=== PATIENT | male | born 1955 | race Caucasian/White ===

== ENCOUNTER → 2023-10-05 14:08 | Outpatient (REF) | payer BC, SELFPAY | LOC: CLAB 14:08 | PROVIDERS: ATTENDING PHYSICIAN Surgery | DX: N40.1 Benign prostatic hyperplasia with lower urinary tract symptoms (principal); R97.20 Elevated prostate specific antigen [PSA] | CPT/HCPCS: 88305; 88344 ==

== ENCOUNTER 2023-10-13 10:27 | Emergency (ER) | payer BC, SELFPAY ==
[2023-10-13 10:41] VITALS: BP 165/93
[2023-10-13 11:12] VITALS: BP 168/93
--- NOTE | 2023-10-13 11:24 | ED.GENMED ---
History of Present Illness
General
Chief Complaint: Swelling
Source: patient
Exam Limitations: none
Time Seen by Provider: 10/13/23 11:10
Travel History
Have you had any contact with someone who has COVID-19?: No
Do you have any symptoms of coronavirus? Fever > 100 degrees, chills, cough, shortness of breath, sore throat, loss of taste or smell, muscle aches, or headache?: No
History of Present Illness
History of Present Illness:
68-year-old male who presents for evaluation of his left leg wound. The patient states that he fell and scraped it 1 week ago. He went to urgent care yesterday because he noticed some redness. He was advised to come the emergency department. The
patient states he did not want to come yesterday and came today. He did have some doxycycline at home and took a dose but did not have enough. He denies fevers. He states the redness seems actually better today. Does smoke but states he is in
the process of quitting and has been using Nicorette gum to help. When the patient first injured his leg, he did not get evaluated. He states he just wrapped it
Past History
Past History
ED Past Medical History: HTN, Hypercholesterolemia and Psychiatric
ED Past Surgical History: Other (Tonsillectomy, sinus surgery, rectal abscess repair, prostate biopsy)
Social History
Tobacco: Smoker
Phy Exam
Physical Exam
Physical Exam:
CONSTITUTIONAL Vital signs reviewed, Patient alert and oriented to person, place and time. Well-appearing
HEAD atraumatic, normocephalic.
EYES eyelids normal to inspection, Extraocular muscles intact, Conjunctiva normal, Sclera normal.
NECK normal range of motion, Trachea midline, no jugular venous distention.
RESP no respiratory distress
BACK No obvious deformities
UPPER EXTREMITY Gross Range of motion normal, gross motor strength normal
LOWER EXTREMITY Gross range of motion normal, Gross motor strength normal. To the lateral aspect of the left lower leg there is a reverse 'J-shaped' apparent skin tear from his injury. The base of the visible open area is blackened. There is some
surrounding redness most notably at the distal edge. There is no proximal redness and no proximal streaking. There is no drainage.
NEURO Speech normal, No focal motor deficits include, [place] coma scale 15, Memory normal, Cranial Nerves intact to screening exam.
SKIN Skin warm, dry, and normal in color.
PSYCHIATRIC Patient oriented to person place and time, Normal affect.
Scores
Heart Failure Risk
Heart Failure Risk Score: Not Applicable
Course
Orders/Labs/Results
Orders:
Orders
10/13/23 11:24
Doxycycline [Vibramycin] 100 mg PO NOW STA
Vital Signs
Initial and Last Documented VS:
Initial Vital Signs
Temp Pulse Resp BP Pulse Ox
98.9 F 98 18 165/93 95
10/13/23 10:41 10/13/23 10:41 10/13/23 10:41 10/13/23 10:41 10/13/23 10:41
Last Documented Vital Signs
Temp Pulse Resp BP Pulse Ox
98.9 F 99 14 168/93 95
10/13/23 10:41 10/13/23 11:15 10/13/23 11:15 10/13/23 11:12 10/13/23 11:15
MDM/Problems Addressed
MDM/Problems Addressed:
Infected skin wound, skin tear
*Pulse Oximetry
Patient hypoxic: no
*Critical Care Note
Total Time (30-74mins, 75-104mins- exclusive of procedures): Not Applicable
Data Reviewed
Source: patient
Further Testing Considered But Not Given:
Consider labs and blood cultures but afebrile and localized skin redness and patient reports redness is improving after Doxy
Patient Management
Escalation/DeEscalation of care consider admission/obs:
Patient does not want a full workup and just wants to get antibiotics to manage it. Reports improving symptoms after just taking a dose or 2 of doxycycline. I think this is reasonable. I will advise outpatient wound care and PCP follow-up
Update Note
Update Note:
Patient was also counseled on importance of smoking cessation
ED Attending Note
-
Portions of this chart may have been created with voice recognition software.� Occasional wrong word or��sound alike� substitutions may have occurred due to the inherent limitations of voice recognition software.
Discharge Plan
Departure
Patient Disposition: Home (Routine Discharge)
Date of Disposition: 10/13/23
Time of Disposition: 11:30
Patient with high blood pressure during this ER visit?: Yes
Discharge Problem:
Infected wound
Instructions: Cellulitis (Skin Infection), Adult (DC)
Prescriptions:
New
doxycycline monohydrate 100 mg tablet
100 mg PO BID Qty: 20 0RF
No Action
sertraline 100 MG tablet
100 mg PO DAILY
lisinopril [Prinivil] 40 MG tablet
40 mg PO
fluticasone propionate [Flonase] 16 GM spray,suspension
16 gm NS DAILY
Patient Comments:
2 squirts/day
Evelia
Activity Restrictions/Additional Instructions:
Return immediately for any increase in redness, drainage from the wound, fever, pain or any other concerns. Please see your doctor in the next 3 days for follow-up and reevaluation and recheck of your wound. In addition, please follow-up with
wound care
Interventions
Interventions:
*General Assessment Last Done: 10/13/23 10:41
ED- Fall Risk Assessment Last Done: 10/13/23 12:01
*ED COVID-19 Vaccine History Last Done: 10/13/23 10:41
*Nursing Disposition Last Done: 10/13/23 12:01
ED- Cardiac Assessment Last Done: 10/13/23 11:59
ED- Pulmonary Assessment Last Done: 10/13/23 11:59
ED-Skin Assessment Last Done: 10/13/23 11:59
Discharge Date and Time
Discharge Date/Time: 10/13/23 12:02
[2023-10-13] MEDS: VIBRAMYCIN 100 MG PO (11:28)
== END 2023-10-13 12:02 | disposition home or self-care (01) ==
LOC: EMR 10:27
PROVIDERS: EMERGENCY PHYSICIAN Emergency Medicine; FAMILY PHYSICIAN Family Medicine
DX: S81.802A Unspecified open wound, left lower leg, initial encounter (principal); W19.XXXA Unspecified fall, initial encounter; F17.200 Nicotine dependence, unspecified, uncomplicated; I10 Essential (primary) hypertension
CPT/HCPCS: 99283

== ENCOUNTER 2023-10-15 19:09 | Observation (INO) | payer BC, SELFPAY ==
[2023-10-15 16:46] VITALS: BP 149/87
--- NOTE | 2023-10-15 17:31 | ED.SKININJ ---
HPI-Injury
General
Chief Complaint: Skin Problem
Source: patient
Exam Limitations: none
Time Seen by Provider: 10/15/23 17:19
Nursing documentation reviewed up to this point in time: agreed with
Travel History
Have you had any contact with someone who has COVID-19?: No
Do you have any symptoms of coronavirus? Fever > 100 degrees, chills, cough, shortness of breath, sore throat, loss of taste or smell, muscle aches, or headache?: No
History of Present Illness-Injury
Is this injury a work related problem?: No
Is pt an associate of [facility]?: No
Initial Injury comments:
Patient to ED with compaint of increasing pain, redness, swelling to E. He was seen in ED 2 days ago requesting antibiotics for wound. He fell 1.5weeks ago and cut leg on wood. He was treating on own until 10/12 when he went to for evaluation
of mild erythema at site. They advised him to come to ED for eval but he didnt want to come to ED at that time. He eventually came to ED on 10/13. He declined work-up. States he ad 1 doxycycline pill at home and took the previous night. He felt
the wound was improving after 1 dose so he was coming to ED to request RX for full course. He was discharged on with doxycycline 100mg BID x 20 doses. States over the past 24 hours the redness has worsened. Today he reports increased
swelling and pain. Denies fever/chills. Brought self to ED. He is agreeable to work-up today, probable admission.
Past History
Past History
ED Past Medical History: HTN, Hypercholesterolemia and Psychiatric
ED Past Surgical History: Other (Tonsillectomy, sinus surgery, rectal abscess repair, prostate biopsy)
Social History
Tobacco: Smoker
Review of Systems
Review of Systems
Allergies reviewed?: Yes
All Other Systems: ROS reviewed and negative except as documented in HPI and ROS
Constitutional: Reports no symptoms
Musculoskeletal: Reports other (Pain redness and swelling to left lower leg.)
Skin: Reports other (large wound on left lateral feng. Surrouonding erythema. Black eschar covering wound. No discharge.)
Neurological: Reports no symptoms
Psychiatric: Reports no symptoms
Phy Exam
General Physical Exam
General Presentation: well appearing and mild distress
General age: appears stated age
General Skin: warm and dry
General Habitus: normal
General Mental: alert
General Hydration: appears well hydrated
Musculoskeletal Exam
Musculoskeletal Exam: full ROM and neuro vasc intact
Skin Exam
Skin Exam: warm/dry and other (Eerythema and swelling to left lowerl leg. Large wound to lateral aspect of lower leg. Black eschar over wound. No drainage.)
Psychiatric Exam
Psychiatric Exam: normal mood/affect
Course
Orders/Labs/Results
Orders:
Orders
10/15/23 Breakfast
Cholesterol Lowering
At Your Request: Full Participation
Cholesterol Lowering: Sodium, 2 Gram
10/15/23 17:29
US Periph Venous LOWER Ext LT Urgent
Comment:
Reason For Exam: swelling erythema
10/15/23 17:58
Complete Blood Count/With Diff Urgent
Comprehensive Metabolic Panel Urgent
10/15/23 18:05
Vancomycin 1 Gram/200 ml [Vancocin] 1 gram in 200 ml IV NOW
10/15/23 18:35
Admit/Transfer Patient As Directed
Co-Sign Provider:
Level of Care: Observation services
Assign to:: Medical/Surgical
Physician / Group: Raman
Diagnosis: cellulitis
10/15/23 18:45
Code Status As Directed
Resuscitation Status: Full Code
10/15/23 18:46
Acetaminophen [Tylenol] 650 mg PO Q4HPRN PRN
Activity As Directed
Activity Level: Out of Bed-Early Mobility
Intake/ Output As Directed
Frequency: Per unit guidelines
Vital Signs As Directed
Frequency: Per unit guidelines
10/15/23 19:00
0.9% Sodium Chloride 1000 ml [Nss] 1,000 ml IV 80 mls/hr
Flush (0.9% Sodium Chloride) [Flush (Nss)] See Dose Instructions IV PER PROTOCOL
10/15/23 20:10
Blood Culture Q15M
BUZZ Source: Blood/Venous
Specimen Description:
10/15/23 20:27
Blood Culture Q15M
BUZZ Source: Blood/Venous
Specimen Description:
10/15/23 20:45
Ciprofloxacin 400 mg/[id number] [Cipro 400 mg] 200 ml IV Q12H
Enoxaparin Sodium [Lovenox] 40 mg SC QPM
Ibuprofen [Motrin] 200 mg PO Q6H PRN
naphazo HCl-hpm-ps 80-Zn sulf [Clear Eyes Complete] 0 drop BOTH EYES QID PRN
10/15/23 20:45
WOUND/OSTOMY CONSULT Routine
Reason for Consult: left leg wound
Activity As Directed
Activity Level: Out of Bed-Early Mobility
Vital Signs As Directed
Frequency: Per unit guidelines
DX Deep Vein Thrombosis Video Routine
10/16/23 06:00
Complete Blood Count/With Diff IN AM
10/16/23 08:00
Lisinopril [Zestril] 40 mg PO DAILY
Sertraline HCl [Zoloft] 100 mg PO DAILY
Abnormal Lab Results
10/15/23
17:58
RBC 4.11 L 10^6/uL
(4.70-6.10)
MCV 95.4 H fL
(80.0-94.0)
MCH 31.9 H pg
(27.0-31.0)
Abs Immat Gran (auto) 0.1 H 10^3/uL
(0-0.05)
Absolute Neuts (auto) 7.1 H 10^3/uL
(1.4-6.5)
Absolute Monos (auto) 0.9 H 10^3/uL
(0.1-0.6)
Immature Gran % 0.6 H %
(0-0.5)
Sodium 132 L mmol/L
(135-145)
BUN 29 H mg/dl
(9-20)
Total Protein 6.2 L g/dl
(6.3-8.2)
10/15/23 17:58
10/15/23 17:58
Vital Signs
Initial and Last Documented VS:
Initial Vital Signs
Temp Pulse Resp BP Pulse Ox
98.2 F 51 16 149/87 96
10/15/23 16:46 10/15/23 16:46 10/15/23 16:46 10/15/23 16:46 10/15/23 16:46
Last Documented Vital Signs
Temp Pulse Resp BP Pulse Ox
97.8 F 80 22 157/83 95
10/15/23 20:53 10/15/23 20:53 10/15/23 20:53 10/15/23 20:53 10/15/23 20:53
*Radiology
Radiology exam reviewed: radiology read reviewed
*Pulse Oximetry
Patient hypoxic: no
*Critical Care Note
Total Time (30-74mins, 75-104mins- exclusive of procedures): Not Applicable
Update Note
Update Note:
Patient to ED with complaint of wrosening redness, swelling and pain to LLE. Seen in ED 2 days ago and placed on doxy 100mg bid without improvement. Will admit to hospitalist. IV antibiotics started in dept.
ED Attending Note
-
Portions of this chart may have been created with voice recognition software.� Occasional wrong word or��sound alike� substitutions may have occurred due to the inherent limitations of voice recognition software.
Discharge Plan
Departure
Patient Disposition: Admit
Date of Disposition: 10/15/23
Time of Disposition: 18:13
Presentation/result/management discussed w/ accepting MD/DO: Hospitalist
Condition: Fair
Covid-19: Not Applicable
Discharge Problem:
Cellulitis of left leg
Interventions
Interventions:
*Risk Screen - Suicide Last Done: 10/15/23 18:05
*General Assessment Last Done: 10/15/23 18:05
*Neglect/Abuse Screening Last Done: 10/15/23 18:05
ED- Fall Risk Assessment Last Done: 10/15/23 18:05
*ED COVID-19 Vaccine History Last Done: 10/15/23 16:46
*Nursing Disposition Last Done: 10/15/23 20:43
ED-Skin Assessment Last Done: 10/15/23 18:05
Discharge Date and Time
Discharge Date/Time: 10/15/23 20:43
[2023-10-15 18:05] VITALS: BMI 28.5
[2023-10-15 18:05] LABS: % Basophils 0.6 % (0-2); % Eosinophils 2.5 % (0-6); % Immature Granulocytes 0.6 % (0-0.5); % Lymphocytes 21.7 % (20.5-51.1); % Monocytes 8.3 % (1.7-9.3); % Neutrophils 66.3 % (42.2-75.2); Absolute Basophils 0.1 10^3/uL (0-0.2); Absolute Eosinophils 0.3 10^3/uL (0-0.7); Absolute Immature Granulocytes 0.1 10^3/uL (0-0.05); Absolute Lymphocytes 2.3 10^3/uL (1.2-3.4); Absolute Monocytes 0.9 10^3/uL (0.1-0.6); Absolute Neutrophils 7.1 10^3/uL (1.4-6.5); Hematocrit 39.2 % (39.0-52.0); Hemoglobin 13.1 g/dL (13.0-18.0); Mean Corp Hgb Conc. 33.4 g/dL (33.0-37.0); Mean Corpuscular Hgb 31.9 pg (27.0-31.0); Mean Corpuscular Volume 95.4 fL (80.0-94.0); Mean Platelet Volume 9.3 fL (7.4-10.4); Nucleated Red Blood Cells % 0 % (-); Platelet Count 206 10^3/uL (130-400); Red Blood Cell Count 4.11 10^6/uL (4.70-6.10); Red Cell Dist. Width 12.5 % (11.5-14.5); White Blood Cell Count 10.8 10^3/uL (4.8-10.8)
[2023-10-15] MEDS: VANCOCIN 200 IV ×2 (18:17→21:42)
[2023-10-15 18:29] LABS: ALT (SGPT) 21 U/L (0-50); AST (SGOT) 32 U/L (17-59); Albumin 3.6 g/dl (3.5-5.0); Alkaline Phosphatase 85 U/L (38-126); Blood Urea Nitrogen 29 mg/dl (9-20); Calcium 8.6 mg/dl (8.4-10.2); Carbon Dioxide 23 mmol/L (22-30); Chloride 106 mmol/L (98-107); Estimated Creatinine Clearance 97 ml/min; Glucose 99 mg/dl (70-99); Potassium 4.6 mmol/L (3.5-5.1); Sodium 132 mmol/L (135-145); Total Bilirubin 0.3 mg/dl (0.2-1.3); Total Protein 6.2 g/dl (6.3-8.2); eGFR > 60.00
--- NOTE | 2023-10-15 19:12 | HPS.HSE ---
Addendum entered and electronically signed by Barby Camargo MD 10/15/23 21:29:
According to the pharmacist on, spoke to the patient his reaction to penicillin more than 40 years ago but since then he had received some cephalosporin without any reaction.
Will start him on Ancef instead of Cipro that would be a better coverage in addition to vancomycin for his cellulitis, will closely monitor.
Original Note:
Family Physician
-
Family Physician: Yan Herrera
Chief Complaint
-
Erythematous swelling of the left leg
History of Present Illness
68-year-old male with history of hypertension, presented again to the hospital for the second time in the last few day as been having now swelling of the left feng. Story goes back to a week ago will look like he injured his left leg, and then went
to urgent care and came to the ER earlier before but look like right he was back in here where she was given doxycycline and has been taking it since then without much relief this morning admit there is still same as red but it is more swelling
today. Denies any fever or chill or any pain or discharge from the area, and look like an inverted J shaped opening, was covered with a black eschar. No active discharge, denies any headache or vision change or any nausea or vomiting.
In the ER given vancomycin.
He is awake, alert and oriented x 3 and all appropriate conversations
He developed anaphylactic reaction to penicillins.
Medical History
Past Medical History
Past Medical History: Reports Other
Additional Past Medical History:
Past medical history reviewed:
Hypertension
Psoriasis
Mood disorder.
Social history: Lives with the family, smokes few cigarettes daily currently uses Nicorette gum, and drinks 4 beers daily and denies any drugs.
Family history: Reviewed and noncontributory
Past Surgical History: Reports Other
Social History
Unable to obtain full social history at this time due to: Other
Employment: Other
Family History
Family History: Other
Allergies / Home Medications
Allergies reflects when Allergies were last updated in [facility].
Home Medications with original date entered in [facility]
Allergy/Medication List:
Allergies
Allergy/AdvReac Type Severity Reaction Status Date / Time
Cephalosporins Allergy Unknown Verified 10/15/23 16:48
oxycodone HCl [From Percocet] Allergy LIPS SWELL Verified 10/15/23 16:48
penicillin V Allergy 'near Verified 10/15/23 16:48
experience'
Seasonal allergies Allergy trouble Uncoded 10/15/23 16:48
breathing,sneezing
Home Medications
sertraline 100 mg tablet 100 mg PO DAILY 12/31/08
doxycycline monohydrate 100 mg tablet 100 mg PO BID #20 tabs 10/13/23
guselkumab 100 mg/mL subcutaneous auto-injector (Tremfya) 100 mg SC Q8W 10/15/23
ibuprofen 200 mg tablet (Advil) 200 mg PO Q6H PRN mild pain 10/15/23
lisinopril 40 mg tablet 40 mg PO DAILY 10/15/23
naphazo HCl 0.025 %-hyprome 0.2 %-ps 80 0.5 %-Zn sulf 0.25 % eye drops (Clear Eyes Complete) 1 drp BOTH EYES QID PRN dryness 10/15/23
Review of Systems
-
A 12 point ROS was completed and negative except as noted: Yes
Physical Exam
Vital Signs
Vital Signs
Temp Pulse Resp BP Pulse Ox
98.2 F 51 16 149/87 96
10/15/23 16:46 10/15/23 16:46 10/15/23 16:46 10/15/23 16:46 10/15/23 16:46
Physical exam:
General: Awake, alert and oriented x3, not in distress and holds appropriate conversation. Overall
HEENT: No active discharge, ecchymosis or bruising, moist lips, tongue and mucous membrane.
Eyes: No discharge or red conjunctiva, no nystagmus, pupils are reactive and equal
Neck:Supple, no JVD no bruit no goiter.
Respiratory: Normal AP contour and diameter, normal chest wall movement, normal respiratory effort, no respiratory distress,
Lungs: Good air entry bilaterally, no wheezing or rhonchi, no rales or crackles
Heart: S1, S2 regular, normal rate, no added sound.
Gastrointestinal: Positive bowel sounds, soft, nontender, no guarding or rigidity or organomegaly
Musculoskeletal: Open wound in the left feng medial laterally, was like J-shaped, was covered with a black eschar with no active discharge there is some redness around it., no chest wall abnormality or tenderness. All joints and extremities have
good range of motion, no muscle tenderness or any joint swelling or tenderness.
Extremities: No pitting edema, good peripheral pulses, good range of motion
Skin: Some chronic skin change, warm and dry, no ulceration, normal color.
Neurological: Awake, alert and oriented x3, no facial droop, speech clear and comprehensive, good muscle tone, normal sensory and motor function
Psychiatric: Normal mood, normal thought and judgment, normal affect,
Physical Exam
General: Other
Laboratory Results
-
10/15/23 17:58
10/15/23 17:58
Laboratory Results
Total Bilirubin 0.3 mg/dl (0.2-1.3) 10/15/23 17:58
AST 32 U/L (17-59) 10/15/23 17:58
ALT 21 U/L (0-50) 10/15/23 17:58
Alkaline Phosphatase 85 U/L (38-126) 10/15/23 17:58
Data Reviewed
-
Lab Data: Labs Reviewed by me and Discussed with Patient
Old Records: Reviewed
Impression/Plan
-
IMPRESSION:
68-year-old male presented again to the hospital for evaluation of the left leg wound and cellulitis, despite taking doxycycline last few days not getting better.
Left leg cellulitis, triggered by traumatic injury of the left leg
Traumatic injury of the left leg
Failed outpatient treatment as doxycycline
Hypertension
Psoriasis
Mood disorder
Smoking
Alcohol use
PLAN:
Will cover with vancomycin with a failed doxycycline in the development of an acute reaction to penicillin also is allergic to cephalosporins therefore will add Cipro floxacillin for gram-negative coverage
Lower extremity ultrasound pending to rule out DVT
EKG because of the IV Cipro
Get a wound team consult for evaluation will hold off surgery consult for now pending wound team evaluation.
Tylenol and ibuprofen as needed
Monitor vital sign
Recheck lab
Continue lisinopril and sertraline
All discussed with the patient in detail and expressed understanding
CODE STATUS full code
DVT prophylaxis Lovenox
--- NOTE | 2023-10-15 20:04 | PHA.VAN.IN ---
Assessment
- Assessment
Renal Function: Unknown baseline (since SCr 2008 - 0.8; same as today)
Maximum Temperature: 98.2
AUC Dosing Plan
- Dosing Variables
Dosing Weight (kg): 92.5
Dosing CrCl (ml/min): 97
Vd coefficient (L/kg): 0.7
- Empiric Dosing
Initial / Loading Dose: 1000 mg 10/15 18:17, 1000 mg pending administation (total = 21.6 mg/kg)
Maintenance Regimen: 1250 mg q12h
Estimated AUC (mcg*h/mL): 484
Estimated Peak (mcg*h/mL): 30.2
Estimated Trough (mcg/ml): 12.4
Estimated Half Life (H): 8.2
- Monitoring
No levels ordered at this time: consider in the next few days
MRSA Screen: Ordered per protocol
Pharmacokinetics Vancomycin I
- -
Patient Age: 68
Patient Sex: Male
Vancomycin Day #: 1
Indication: Skin And Soft Tissue
Requesting Provider: Dr Camargo
Pertinent Antimicrobial Allergies:
Cephalosporins Allergy (Verified 10/15/23 20:03) Unknown- tolerated cefotetan in 2008
penicillin V Allergy (Verified 10/15/23 20:03) 'near experience'
Height / Weight:
Height 5 ft 11 in
Actual Weight 92.5 kg
- Vital Signs / Lab Results
Temp Pulse Resp BP Pulse Ox
98.2 F 51 16 149/87 96
10/15/23 16:46 10/15/23 16:46 10/15/23 16:46 10/15/23 16:46 10/15/23 16:46
Lab Results - Hematology
10/15/23
17:58
WBC 10.8
Lab Results - Chemistry
10/15/23
17:58
BUN 29 H
Creatinine 0.8
Estimated Creat Clear 97
Albumin 3.6
[2023-10-15] MEDS: NSS 1000 IV (20:34)
[2023-10-15 20:53] VITALS: BP 157/83
[2023-10-15] MEDS: LOVENOX 40 MG SC (21:38)
--- NOTE | 2023-10-15 22:25 | PTCARENOTE ---
Received pt from ED via stretcher. Pt ambulated to bed with stand by assist. AAOx3, VSS, no complaints of pain at this time. Oriented to floor, call duron within reach.
[2023-10-15] MEDS: ANCEF 5 IV (22:42)
[2023-10-16 02:54] VITALS: BP 119/81
[2023-10-16] MEDS: ANCEF 5 IV ×2 (05:30→13:04)
[2023-10-16] MEDS: VANCOCIN 275 MG IV (05:38)
[2023-10-16 06:00] VITALS: BMI 26.6
[2023-10-16 07:30] VITALS: BP 140/82
[2023-10-16] MEDS: ZESTRIL 40 MG PO (08:02)
[2023-10-16] MEDS: ZOLOFT 100 MG PO (08:02)
[2023-10-16 08:11] LABS: % Basophils 0.5 % (0-2); % Eosinophils 2.8 % (0-6); % Immature Granulocytes 0.7 % (0-0.5); % Lymphocytes 21.2 % (20.5-51.1); % Monocytes 8.8 % (1.7-9.3); Absolute Eosinophils 0.2 10^3/uL (0-0.7); Absolute Immature Granulocytes 0.1 10^3/uL (0-0.05); Absolute Lymphocytes 1.9 10^3/uL (1.2-3.4); Absolute Monocytes 0.8 10^3/uL (0.1-0.6); Absolute Neutrophils 5.8 10^3/uL (1.4-6.5); Hematocrit 39.7 % (39.0-52.0); Hemoglobin 13.1 g/dL (13.0-18.0); Mean Corpuscular Hgb 31.9 pg (27.0-31.0); Mean Corpuscular Volume 96.6 fL (80.0-94.0); Mean Platelet Volume 9.8 fL (7.4-10.4); Nucleated Red Blood Cells % 0 % (-); Platelet Count 193 10^3/uL (130-400); Red Blood Cell Count 4.11 10^6/uL (4.70-6.10); Red Cell Dist. Width 12.5 % (11.5-14.5); White Blood Cell Count 8.7 10^3/uL (4.8-10.8)
--- NOTE | 2023-10-16 09:28 | PHA.VAN.FU ---
Vancomycin Assessment / Plan
- Assessment
Renal Function: No New Labs Today
WBC's are: WNL
In the past 24 hrs, patient has been: Afebrile
Concomitant Antimicrobials: cefazolin
- Dosing Plan
Continue: Vanc 1250mg Q12H
- Monitoring Plan
No level(s) ordered at this time: consider levels in next few days
- Follow Up
Pharmacy will continue to follow.
Vancomycin Follow UP
- -
Patient Age: 68
Patient Sex: Male
Vancomycin Day #: 2
Indication: Skin And Soft Tissue
Requesting Provider: Dr Camargo
Pertinent Antimicrobial Allergies:
Azithromycin - hives
penicillin V - 'near experience'; couldn't breath, 40 years ago, tolerated cefotetan
Height / Weight:
Height 5 ft 11 in
Actual Weight 86.5 kg
- Vital Signs / Lab Results
Temp Pulse Resp BP Pulse Ox
97.5 F 69 19 140/82 96
10/16/23 07:30 10/16/23 08:02 10/16/23 07:30 10/16/23 08:02 10/16/23 07:30
Lab Results - Hematology
10/15/23 10/16/23
17:58 07:15
WBC 10.8 8.7
Lab Results - Chemistry
10/15/23
17:58
BUN 29 H
Creatinine 0.8
Estimated Creat Clear 97
Albumin 3.6
--- NOTE | 2023-10-16 10:45 | WOUNDNOTE ---
MADYSON RN note: Patient admitted with cellulitis of L leg and wound.
See H&P for complete history.
PMH: HTN,smoker, recent laceration to L leg.
Wound Location and type/assessment: Patient admitted with: Dry open laceration to L lateral leg. Patient states he tripped over electrical cord and scraped leg against a wooden platform. + palpable pedal pulse, 1+ edema.
Appetite: Good, encouraged protein in diet.
Pressure redistribution devices in place:Accumax, patient is ad yeny.
Plan: L leg applied adaptic and silicone foam, will order Santyl to help clean up wound bed. Tubigrip for edema as tolerated. Called [facility] for supply. Discussed the above with nurse Erazo who will apply Santyl under current dressing and apply Tubigrip
forefoot to below knee. Encouraged patient to elevate leg when sitting. Teaching done with patient regarding wound care and compression. States family who lives nearby can assist with wound care as needed.
Will confirm orders with hospitalist and updated nurse.
Updated care plan and will follow as needed.
Note to case management of equipment requested for discharge: None.
Recommend follow up at wound care center upon discharge.
[2023-10-16] MEDS: SANTYL OINTMENT 1 APPLIC TOPICAL (10:58)
--- NOTE | 2023-10-16 14:23 | W.PN.HOSP.TC ---
Today's Communication/Plan
-
X ray of the leg
BMP
Assessment / Plan
Assessment / Plan
68-year-old male injured his leg at home on a wooden block about 13 days ago. He was seen at urgent care 4 days ago and was started on doxycycline. 2 days after taking it he did not feel better therefore he came to the hospital. He states that it
is remarkably better and states that he wants to go home today. He denies any fevers at home.
On examination awake alert oriented
Cardiovascular system S1-S2 appreciated
Chest clear to auscultation
Abdomen soft nontender
Left lower extremity mild edema, dry open laceration in the lateral leg no discharge noted
Patient states he had a tetanus vaccine done April 2023 at urgent care when he had a cat bite.confirmed by family member at bedside
#Cellulitis secondary to open wound on the left leg
Has Tubigrip's on with dressing
No wound cultures were obtained on admission
Blood cultures pending
Change antibiotics to p.o. check x-ray
# Depression-continue sertraline
# Hypertension-continue lisinopril
# Psoriasis on Tremfya
# Mild hyponatremia-repeat
# COPD
# Active smoker-cessation counseling
# DVT prophylaxis-Lovenox
# Full code
Discussed with family at bedside
D/W RN
Anticipated Discharge: Today
Subjective/Interval History
-
Date of Service: October 16, 2023
Objective Data
-
Labs:
Laboratory Results
10/16/23
07:15
WBC 8.7
Hgb 13.1
Hct 39.7
Plt Count 193
Vital Signs:
Vital Signs
Temp Pulse Resp BP Pulse Ox
97.5 F 69 19 140/82 96
10/16/23 07:30 10/16/23 08:02 10/16/23 07:30 10/16/23 08:02 10/16/23 07:30
[2023-10-16 15:01] LABS: Blood Urea Nitrogen 17 mg/dl (9-20); Calcium 8.5 mg/dl (8.4-10.2); Carbon Dioxide 22 mmol/L (22-30); Chloride 107 mmol/L (98-107); Estimated Creatinine Clearance 111 ml/min; Glucose 129 mg/dl (70-99); Potassium 4.6 mmol/L (3.5-5.1); Sodium 132 mmol/L (135-145); eGFR > 60.00
[2023-10-16 15:30] VITALS: BP 163/92
--- NOTE | 2023-10-16 16:12 | W.PN.UPDATE ---
Update Note
Progress Note Update
Sodium stable OP in 1 week
X ray noted- no OM
Discharge with PPO AB and OP F/U with WC
--- NOTE | 2023-10-16 16:14 | W.DS.TRANS ---
Addendum entered and electronically signed by Mir Sin MD 10/16/23 17:23:
Dictation- [id number]
Original Note:
DC Summary - [employer]
-
Discharge Instructions:
Discharge Diagnosis/Procedures Cellulitis, laceration of the left leg, high
blood pressure, psoriasis
Diet 2 Gram Sodium
Activity As tolerated
Driving Restrictions As prior to admission
Blood Work cbc,bmp 1 week
Other Services VN
Instructions:
Stand-Alone Forms:
Changes to Home Medications: Yes
Discharge Medications:
DC Medications w/original date entered in [employer]
sertraline 100 mg tablet 100 mg PO DAILY Mental Health 12/31/08
doxycycline monohydrate 100 mg tablet 100 mg PO BID Infection 10/15/23
guselkumab 100 mg/mL subcutaneous auto-injector (Tremfya) 100 mg SC Q8W psoriasis 10/15/23
ibuprofen 200 mg tablet (Advil) 200 mg PO Q6H PRN mild pain 10/15/23
lisinopril 40 mg tablet 40 mg PO DAILY Blood Pressure 10/15/23
naphazo HCl 0.025 %-hyprome 0.2 %-ps 80 0.5 %-Zn sulf 0.25 % eye drops (Clear Eyes Complete) 1 drp BOTH EYES QID PRN dryness 10/15/23
cephalexin 500 mg capsule 500 mg PO QID Skin issues #24 caps 10/16/23
collagenase clostridium histo. 250 unit/gram topical ointment (Santyl) 1 applic topical DAILY Skin issues #30 grams 10/16/23
nicotine (polacrilex) 2 mg gum 2 mg PO Q2HPRN PRN Smoking craving #0 ea 10/16/23
Home Medication Changes
new
cephalexin 500 mg capsule 500 mg PO QID Skin issues #24 caps 10/16/23
collagenase clostridium histo. 250 unit/gram topical ointment (Santyl) 1 applic topical DAILY Skin issues #30 grams 10/16/23
nicotine (polacrilex) 2 mg gum 2 mg PO Q2HPRN PRN Smoking craving #0 ea 10/16/23
Pending Results: Yes
Additional Pending Results:
blood cultures pending,
--- NOTE | 2023-10-16 18:33 | PTCARENOTE ---
Reviewed discharge instructions with patient. Patient verbalizes understanding of all instructions. Removed peripheral IV. Patient left via wheelchair with patient transport. Denies questions or complaints at this time.
== END 2023-10-16 16:47 | disposition home or self-care (01) ==
LOC: 4 EAST ACU 19:09
PROVIDERS: Nurse Practitioner; ADMITTING PHYSICIAN Internal Medicine; ATTENDING PHYSICIAN Hospitalist; EMERGENCY PHYSICIAN Emergency Medicine; FAMILY PHYSICIAN Family Medicine
DX: L03.116 Cellulitis of left lower limb (principal); S81.812D Laceration without foreign body, left lower leg, subsequent encounter; X58.XXXD Exposure to other specified factors, subsequent encounter; I10 Essential (primary) hypertension; E78.00 Pure hypercholesterolemia, unspecified; J44.9 Chronic obstructive pulmonary disease, unspecified; E87.1 Hypo-osmolality and hyponatremia; F17.200 Nicotine dependence, unspecified, uncomplicated; L53.8 Other specified erythematous conditions; Z88.1 Allergy status to other antibiotic agents; Z88.5 Allergy status to narcotic agent; Z88.0 Allergy status to penicillin; F32.A Depression, unspecified
CPT/HCPCS: 73590; 80048; 80053; 85025; 87040; 87070; 93005; 93971; 96365; 99285; 99406; G0378

== ENCOUNTER → 2023-11-09 11:54 | Outpatient (REF) | payer BC, SELFPAY | LOC: PET 11:54 | PROVIDERS: ATTENDING PHYSICIAN Surgery | DX: C61 Malignant neoplasm of prostate (principal) | CPT/HCPCS: 78815; A9595 ==

== ENCOUNTER 2024-01-16 06:11 | Inpatient (IN) | payer BC, SELFPAY ==
[2024-01-10 08:52] VITALS: BMI 27.3
[2024-01-10 10:20] LABS: Hematocrit 45.6 % (39.0-52.0); Hemoglobin 15.2 g/dL (13.0-18.0); Mean Corp Hgb Conc. 33.3 g/dL (33.0-37.0); Mean Corpuscular Hgb 31.7 pg (27.0-31.0); Mean Platelet Volume 10.1 fL (7.4-10.4); Platelet Count 207 10^3/uL (130-400); Red Cell Dist. Width 14.2 % (11.5-14.5); White Blood Cell Count 6.8 10^3/uL (4.8-10.8)
[2024-01-10 10:31] LABS: APTT 30.8 Sec (23.4-35.0); INR 0.91; PT 12.3 Sec (11.4-14.6)
[2024-01-10 10:39] LABS: Urine Albumin Trace (Neg - Trace); Urine Bilirubin Negative (Negative); Urine Character Clear (Clear); Urine Color Yellow; Urine Glucose Negative (Negative); Urine Ketone Negative (Negative); Urine Leukocyte Negative (Negative); Urine Nitrite Negative (Negative); Urine Occult Blood 3+ (Negative); Urine Urobilinogen Negative (Neg - 1+)
[2024-01-10 10:51] LABS: Blood Urea Nitrogen 8 mg/dl (9-20); Calcium 9.1 mg/dl (8.4-10.2); Carbon Dioxide 28 mmol/L (22-30); Chloride 103 mmol/L (98-107); Estimated Creatinine Clearance 104 ml/min; Glucose 106 mg/dl (70-99); Sodium 139 mmol/L (135-145); eGFR > 60.00
[2024-01-10 11:39] LABS: Urine Mucus Many
[2024-01-10 11:41] LABS: Urine Amorphous Seen; Urine Squamous Cell 0-2 /LPF (Few)
[2024-01-10 11:42] LABS: Urine Granular Cast 0-2 /LPF (0)
[2024-01-10 11:43] LABS: Urine White Cell 0-2 /HPF (0-5)
[2024-01-16] VITALS (12 sets, daily range): BP systolic 117–187; BP diastolic 63–99; BMI 27.3; BMI 26.2
[2024-01-16] MEDS: NORMOSOL-R 1000 IV ×3 (06:35→22:14)
[2024-01-16] MEDS: NEOMYCIN ENEMA 1 BOTTLE RECTAL (06:40)
[2024-01-16] MEDS: VENTOLIN NEBULES 2.5 MG INH (08:11)
--- NOTE | 2024-01-16 10:40 | W.IMMPOSTOP ---
Surgical Immed Post Op Note
-
Primary Surgeon: Som
Assisting Surgeon: Debbie
Pre-op Diagnosis: Prostate cancer
Post-op Diagnosis: Same
Procedure Performed: Radical perineal prostatectomy, bladder neck reconstruction, bilateral seminal vesiculectomy
Anesthesia Type: GET
Specimen / Cultures: Prostate with en bloc adnexa, bladder neck and urethral margins
Estimated Blood Loss: 200 ml
Complications: None
[2024-01-16 11:08] LABS: Hematocrit 39.5 % (39.0-52.0)
[2024-01-16 11:19] LABS: Blood Urea Nitrogen 19 mg/dl (9-20); Calcium 7.9 mg/dl (8.4-10.2); Carbon Dioxide 22 mmol/L (22-30); Chloride 107 mmol/L (98-107); Estimated Creatinine Clearance 91 ml/min; Glucose 150 mg/dl (70-99); eGFR > 60.00
[2024-01-16 11:36] LABS: Sodium 135 mmol/L (135-145)
--- NOTE | 2024-01-16 11:55 | SUR.PHASEI ---
Dr. Kearns updated on urine output. Will continue to monitor
[2024-01-16] MEDS: COLACE PO (12:59)
--- NOTE | 2024-01-16 13:10 | PTCARENOTE ---
pt admitted to room 2119 from PACU at 1215. pt drowsy, easily arousable. assessment as documented. pt oriented to room, call duron, bed controls and plan of care with verbalized understanding. pt tolerating sips of water at this time. will
observe.
[2024-01-16] MEDS: COLACE 100 MG PO (17:10)
[2024-01-16] MEDS: TORADOL 15 MG IV ×2 (17:10→22:11)
[2024-01-16] MEDS: POLYSPORIN/DOUBLE ANTIBIOTIC 1 APPLIC TOPICAL (20:50)
[2024-01-17 03:16] VITALS: BP 158/89
[2024-01-17] MEDS: TORADOL 15 MG IV ×4 (04:07→21:34)
[2024-01-17 07:52] LABS: Hematocrit 33.7 % (39.0-52.0); Hemoglobin 11.1 g/dL (13.0-18.0); Mean Corp Hgb Conc. 32.9 g/dL (33.0-37.0); Mean Corpuscular Hgb 31.9 pg (27.0-31.0); Mean Corpuscular Volume 96.8 fL (80.0-94.0); Mean Platelet Volume 9.9 fL (7.4-10.4); Platelet Count 174 10^3/uL (130-400); Red Blood Cell Count 3.48 10^6/uL (4.70-6.10); Red Cell Dist. Width 13.6 % (11.5-14.5); White Blood Cell Count 11.5 10^3/uL (4.8-10.8)
[2024-01-17 08:21] VITALS: BP 145/98
[2024-01-17 08:37] LABS: Blood Urea Nitrogen 14 mg/dl (9-20); Calcium 8.2 mg/dl (8.4-10.2); Carbon Dioxide 25 mmol/L (22-30); Chloride 104 mmol/L (98-107); Estimated Creatinine Clearance 97 ml/min; Glucose 94 mg/dl (70-99); Potassium 4.8 mmol/L (3.5-5.1); Sodium 134 mmol/L (135-145); eGFR > 60.00
[2024-01-17] MEDS: POLYSPORIN/DOUBLE ANTIBIOTIC 1 APPLIC TOPICAL ×2 (09:15→21:34)
[2024-01-17] MEDS: ZOLOFT 100 MG PO (09:16)
[2024-01-17] MEDS: COLACE 100 MG PO ×3 (09:16→17:44)
[2024-01-17] MEDS: LEVAQUIN 100 IV (09:17)
[2024-01-17] MEDS: ZESTRIL 40 MG PO (09:17)
--- NOTE | 2024-01-17 09:31 | W.PN.SURGUPD ---
Surgical Update
Surgical Update
Stable 1 day s/p radical perineal prostatectomy
Labs OK
Afebrile
Tolerating diet
Calvin draining clear urine
Dressing intact
---
Discontinue IV fluids
Incentive spirometry
OOB/ambulating
[place] drain out in AM 01/18/24
[2024-01-17 11:30] VITALS: BP 134/83
[2024-01-17] MEDS: NORMOSOL-R 1000 IV (12:53)
--- NOTE | 2024-01-17 14:55 | CM ---
CM met with pt bedside
Pt resides with his son in a 2SH with 3STE, full flight to second floor
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
Pt has a new working nebulizer at home
PCP- Yan Herrera
Rx- [facility] order placed by surgeon for rader care and wound care
Pt in agreement but deferred provider choice and dc planning to son
Call with son to review planning
Referral made to [facility] per request
Discharge Disposition- home with VN ([facility] pending)
--- NOTE | 2024-01-17 15:57 | VNURNOTE ---
[facility] referral completed in [facility] after review of chart.
Patient was sound asleep at time of visit.
Home Health Liaison spoke with patient's son Kin at 1600 to discuss [facility] nurse visits, schedule and homebound status. Kin is agreeable and understands that visits at home will be 2-3 x per week to assess and teach medical management and catheter
care.
Kin is aware that [facility] will contact him for start of care in 1-2 days after discharge from .
[2024-01-17 16:09] VITALS: BP 107/55
--- NOTE | 2024-01-17 22:18 | PTCARENOTE ---
Notified contact clerk urologist Dr. Fox that during toileting the pt to the bedside commode, pt's sinai drain became dislodged. Dr. Fox said this was ok since the drain was d/t be d'leti 01/17.
[2024-01-17 23:00] VITALS: BP 131/82
[2024-01-18 07:40] VITALS: BP 164/92
[2024-01-18] MEDS: LEVAQUIN 100 IV (08:08)
[2024-01-18] MEDS: ZESTRIL 40 MG PO (08:08)
[2024-01-18] MEDS: POLYSPORIN/DOUBLE ANTIBIOTIC 1 APPLIC TOPICAL (08:08)
[2024-01-18] MEDS: ZOLOFT 100 MG PO (08:08)
[2024-01-18] MEDS: COLACE 100 MG PO ×2 (08:08→11:13)
--- NOTE | 2024-01-18 08:08 | W.DS.TRANS ---
DC Summary - [employer]
-
Discharge Instructions:
Sleep Apnea Risk Intermediate
Instructions:
Stand-Alone Forms:
Changes to Home Medications: No
Discharge Medications:
DC Medications w/original date entered in [employer]
sertraline 100 mg tablet 100 mg PO DAILY Mental Health 12/31/08
guselkumab 100 mg/mL subcutaneous auto-injector (Tremfya) 100 mg SC Q8W psoriasis 10/15/23
lisinopril 40 mg tablet 40 mg PO DAILY Blood Pressure 10/15/23
albuterol sulfate 90 mcg/actuation aerosol inhaler 2 puff inhalation 6XD PRN shortness of breath 01/09/24
Home Medication Changes
Pending Results: No
--- NOTE | 2024-01-18 11:01 | CM ---
Addendum entered by Candice Blevins 01/18/24 13:08:
patient is being dc home with [facility].
Original Note:
met with patient who is stable for discharge home today with no needs.
[2024-01-18 12:11] VITALS: BP 144/74
== END 2024-01-18 13:50 | disposition home health service (06) | DRG 708 ==
LOC: 2 SOUTH 06:11
PROVIDERS: ADMITTING PHYSICIAN Specialist; FAMILY PHYSICIAN Family Medicine
PROC: 0VT00ZZ Resection of Prostate, Open Approach (ICD-10-PCS; 2024-01-18)
PROC: 0TSC0ZZ Reposition Bladder Neck, Open Approach (ICD-10-PCS; 2024-01-18)
DX: C61 Malignant neoplasm of prostate (principal); J30.2 Other seasonal allergic rhinitis; N40.1 Benign prostatic hyperplasia with lower urinary tract symptoms; I10 Essential (primary) hypertension; R32 Unspecified urinary incontinence; Z88.1 Allergy status to other antibiotic agents; Z88.5 Allergy status to narcotic agent; Z88.0 Allergy status to penicillin; Z80.42 Family history of malignant neoplasm of prostate; Z80.1 Family history of malignant neoplasm of trachea, bronchus and lung
CPT/HCPCS: 88305; 88309; 88332; 36415; 80048; 81003; 81015; 85014; 85018; 85027; 85610; 85730; 86850; 86900; 86901; 88331; 88342; 93005; 94640; 99406; A4648